=== PATIENT | female | born 1975 | race Caucasian/White ===

== ENCOUNTER 2016-09-24 09:52 | Observation (INO) | payer BC ==
[2016-09-24 10:55] LABS: CH 32.3; CHCM 34.9; HCT 45.3 % (34.0-46.0); HDW 2.51; HGB 15.4 gm/dL (11.4-16.0); MCH 31.7 pg (25.0-35.0); MCV 93.1 fL (80.0-100.0); RBC 4.86 m/uL (3.80-5.40); RDW 13.8 % (11.5-15.5); WBC 11.4 k/uL (3.8-10.6); WBC (Perox) 11.27
--- NOTE | 2016-09-24 10:57 | XR ---
EXAMINATION TYPE: XR KUB DATE OF EXAM: 09/24/2016 COMPARISON: NONE HISTORY: Pain TECHNIQUE: One view abdominal series FINDINGS: The osseous structures are intact. The bowel gas pattern is nonspecific. Lung bases are clear. Calc ifications in pelvis are likely vascular. Arthropathy of the hip joints. IMPRESSION: 1. Nonspecific abdomen.
[2016-09-24 11:04] LABS: ALT 24 U/L (9-52); AST 22 U/L (14-36); Alkaline Phosphatase 72 U/L (38-126); Amylase 41 U/L (30-110); Anion Gap 11 mmol/L; Blood Urea Nitrogen 10 mg/dL (7-17); Calcium 9.4 mg/dL (8.4-10.2); Carbon Dioxide 26 mmol/L (22-30); Chloride 106 mmol/L (98-107); Glucose 128 mg/dL (74-99); Non-African American GFR(MDRD) >60 (>60 ml/min/1.73 sqM); Potassium 4.4 mmol/L (3.5-5.1); Sodium 143 mmol/L (137-145); Total Bilirubin 0.5 mg/dL (0.2-1.3); Total Protein 7.4 g/dL (6.3-8.2)
[2016-09-24 11:32] LABS: Add Differential Manual Differential
[2016-09-24 11:35] LABS: Nucleated Red Blood Cells 0 /100 WBC (0-0); RBC Morphology Normal; Total Cells Counted 100
[2016-09-24 12:10] LABS: Appearance,Urine Cloudy (Clear); Bilirubin,Urine Negative (Negative); Glucose,Urine (UA) Negative (Negative); Ketones,Urine Negative (Negative); Leukocyte Esterase,Urine Small (Negative); Mucus,Urine Rare /hpf; Nitrite,Urine Negative (Negative); Particle Count 5071; Protein,Urine Negative (Negative); Specific Gravity,Urine 1.021 (1.001-1.035); Squamous Epithelial Cell,Urine 4 /hpf (0-4); UA Billing (MACRO vs. MICRO) MICRO; Urobilinogen,Urine <2.0 mg/dL (<2.0); WBC,Urine 9 /hpf (0-5)
--- NOTE | 2016-09-24 13:44 | ED ---
Abdominal Pain HPI - General Chief Complaint: Abdominal Pain Stated Complaint: ABNORMAL US RESULT Time Seen by Provider: 09/24/16 10:43 Source: patient, RN notes reviewed Mode of arrival: ambulatory Limitations: no limitations - History of Present Illness Initial Comments: This is a 41-year-old female with a benign past medical history who was sent in for evaluation for abdominal pain and a dilated common bile duct. Patient is having some intermittent upper abdominal pain and right upper quadrant pain recently she had laboratory her doctor's office is pending ultrasound done this one showed a dilated common bile duct. Patient was seen in pressure his office and sent here for evaluation and admission. No reports of fevers chills nausea vomiting sweats at this time. MD Complaint: abdominal pain - Related Data Home Medications Medication Instructions Recorded Confirmed Ranitidine HCl [Zantac] 150 mg PO HS 03/25/16 09/24/16 Spironolactone [Aldactone] 25 mg PO HS 03/25/16 09/24/16 metFORMIN HCL [Glucophage] 500 mg PO HS 03/25/16 09/24/16 Ginkgo Biloba 500 mg PO HS 09/24/16 09/24/16 Allergies Allergy/AdvReac Type Severity Reaction Status Date / Time Sulfa (Sulfonamide Allergy Rash/Hives Verified 09/24/16 10:03 Antibiotics) Review of Systems ROS Statement: Those systems with pertinent positive or pertinent negative responses have been documented in the HPI. ROS Other: All systems not noted in ROS Statement are negative. Past Medical History Past Medical History: Hypertension Additional Past Medical History / Comment(s): dysfunctional uterine bleeding History of Any Multi-Drug Resistant Organisms: None Reported Past Surgical History: Tubal Ligation Additional Past Surgical History / Comment(s): NASAL Past Anesthesia/Blood Transfusion Reactions: No Reported Reaction Past Psychological History: No Psychological Hx Reported Smoking Status: Never smoker Past Alcohol Use History: Occasional Past Drug Use History: None Reported - Past Family History Mother Family Medical History: Cancer, Congestive Heart Failure (CHF), Diabetes Mellitus, Hypertension Additional Family Medical History / Comment(s): OVARIAN CA Father Family Medical History: Cancer Additional Family Medical History / Comment(s): COLON CA Brother(s) Family Medical History: Neurologic Disorder Additional Family Medical History / Comment(s): ONE OF 5 BROTHERS HAS PARKINSON' S General Exam - General Exam Comments Initial Comments: This is a well-developed well-nourished awake alert oriented 3 female Limitations: no limitations General appearance: alert, in no apparent distress Head exam: Present: atraumatic, normocephalic, normal inspection Eye exam: Present: normal appearance, PERRL, EOMI. Absent: scleral icterus, conjunctival injection, periorbital swelling ENT exam: Present: normal exam, mucous membranes moist Neck exam: Present: normal inspection. Absent: tenderness, meningismus, lymphadenopathy Respiratory exam: Present: normal lung sounds bilaterally. Absent: respiratory distress, wheezes, rales, rhonchi, stridor Cardiovascular Exam: Present: regular rate, normal rhythm, normal heart sounds. Absent: systolic murmur, diastolic murmur, rubs, gallop, clicks GI/Abdominal exam: Present: soft, tenderness (For a mild tenderness palpation of the epigastrium some right upper quadrant tenderness no guarding or rebound) , normal bowel sounds. Absent: distended, guarding, rebound, rigid Extremities exam: Present: normal inspection, full ROM, normal capillary refill. Absent: tenderness, pedal edema, joint swelling, calf tenderness Back exam: Present: normal inspection Neurological exam: Present: alert, oriented X3, CN II-XII intact Psychiatric exam: Present: normal affect, normal mood Skin exam: Present: warm, dry, intact, normal color. Absent: rash Course Vital Signs 09/24/16 09/24/16 10:00 12:25 Temperature 98.2 F 97.9 F Pulse Rate 86 77 Respiratory 17 16 Rate Blood Pressure 188/97 142/75 O2 Sat by Pulse 99 97 Oximetry - Reevaluation(s) Reevaluation #1: 09/24/16 13:45 I did review the ultrasound from this morning he, bile duct is dilated measuring approximately 9 mm no definite stone Medical Decision Making - Medical Decision Making I did review the ultrasound imaging facial be admitted to medicine with consultation by GI and surgery. - Lab Data Result diagrams: 09/24/16 10:14 09/24/16 10:14 Lab Results 09/24/16 09/24/16 09/24/16 Range/Units 10:14 10:14 11:35 WBC 11.4 H (3.8-10.6) k/uL RBC 4.86 (3.80-5.40) m/uL Hgb 15.4 (11.4-16.0) gm/dL Hct 45.3 (34.0-46.0) % MCV 93.1 (80.0-100.0) fL MCH 31.7 (25.0-35.0) pg MCHC 34.0 (31.0-37.0) g/dL RDW 13.8 (11.5-15.5) % Plt Count 223 (150-450) k/uL Neutrophils % (Manual) 56.0 % Lymphocytes % (Manual) 32.0 % Monocytes % (Manual) 4.0 % Eosinophils % (Manual) 8.0 % Neutrophils # (Manual) 6.4 (1.3-7.7) k/uL Lymphocytes # (Manual) 3.6 (1.0-4.8) k/uL Monocytes # (Manual) 0.5 (0-1.0) k/uL Eosinophils # (Manual) 0.9 H (0-0.7) k/uL Nucleated RBCs 0 (0-0) /100 WBC RBC Morphology Normal Sodium 143 (137-145) mmol/L Potassium 4.4 (3.5-5.1) mmol/L Chloride 106 (98-107) mmol/L Carbon Dioxide 26 (22-30) mmol/L Anion Gap 11 mmol/L BUN 10 (7-17) mg/dL Creatinine 0.79 (0.52-1.04) mg/dL Est GFR (MDRD) Af Amer >60 (>60 ml/min/1.73 sqM) Est GFR (MDRD) Non-Af >60 (>60 ml/min/1.73 sqM) Glucose 128 H (74-99) mg/dL Calcium 9.4 (8.4-10.2) mg/dL Total Bilirubin 0.5 (0.2-1.3) mg/dL AST 22 (14-36) U/L ALT 24 (9-52) U/L Alkaline Phosphatase 72 (38-126) U/L Total Protein 7.4 (6.3-8.2) g/dL Albumin 4.3 (3.5-5.0) g/dL Amylase 41 (30-110) U/L Lipase 81 (23-300) U/L Urine Color Yellow Urine Appearance Cloudy H (Clear) Urine pH 6.0 (5.0-8.0) Ur Specific [place] 1.021 (1.001-1.035) Urine Protein Negative (Negative) Urine Glucose (UA) Negative (Negative) Urine Ketones Negative (Negative) Urine Blood Negative (Negative) Urine Nitrite Negative (Negative) Urine Bilirubin Negative (Negative) Urine Urobilinogen <2.0 (<2.0) mg/dL Ur Leukocyte Esterase Small H (Negative) Urine WBC 9 H (0-5) /hpf Ur Squamous Epith Cells 4 (0-4) /hpf Urine Mucus Rare H (None) /hpf Disposition Clinical Impression: Abdominal pain, Bile duct abnormality Disposition: ADMITTED IP TO THIS HOSP Condition: Stable Referrals: Musa Suarez MD [Primary Care Provider] - 1-2 days
[2016-09-24] MEDS ORDERED: ONDANSETRON 4 MG/2 ML VIAL IVP PRN (13:47)
[2016-09-24] MEDS ORDERED: HYDROmorphone 1 MG/ML 1 ML SYRINGE IV PRN (13:47)
[2016-09-24] MEDS ORDERED: NALOXONE 0.4 MG/ML 1 ML VIAL IV PRN (13:47)
[2016-09-24 14:55] VITALS: BMI 40.2
[2016-09-24] MEDS: SODIUM CHLORIDE 0.9% 1,000 ML IV SCH ×2 (15:20→22:20)
--- NOTE | 2016-09-24 19:11 | P.GSCN ---
History of Present Illness Consult date: 09/24/16 Reason for Consult: Common bile duct dilatation, right upper quadrant abdominal pain Requesting physician: Kushal Marie History of present illness: The patient is a 41-year-old female who reports in the last 2 nights getting up in the middle of night secondary to severe epigastric including right upper quadrant abdominal pain. She denies any radiation to the right back or shoulder. She denies a family history of gallbladder disease. She denies any blood in stools however she has developed diarrhea with this acute onset of events. She reports for the last 2 nights she had tuna fish salad followed by tacos last night, all of which contains fatty content and had precipitated episodes of her abdominal pain. She reports the pain has subsided however still present upon palpation. She had completed an ultrasound consistent with common bile duct dilatation however ultrasound was negative for gallstones. Secondary to her presentation, Gen. surgery' is consulted for further management. Review of Systems CONSTITUTIONAL: Denies any fever or chills. She has attempted weight loss at most between 3-5 pounds. HEENT: Denies any trouble with vision, hearing or nosebleeds. No difficulty swallowing. LYMPHATIC: The patient denies any lumps and bumps around the neck. ENDOCRINE: Denies any thyroid disorders. Has blood sugar glucose intolerance. RESPIRATORY: Denies pneumonia. Denies any troubles with breathing or dyspnea on exertion. CARDIOVASCULAR: Denies any chest pain, palpitations, or recent heart attacks. GASTROINTESTINAL: Has heart burn, constipation or bright red blood per rectum. Has diarrhea. GENITOURINARY: Denies any blood in urine or increased urinary frequency. MUSCULOSKELETAL: Denies any back pain, stiffness, joint arthritis. NEUROLOGIC: Denies any numbness or tingling along the distal extremities. No seizure disorders or headaches. PSYCHIATRIC: Denies depression or suidical ideation. HEMATOLOGIC: Denies any abnormal bleeding or bruising. BREASTS: Denies any breast lumps, pain or nipple discharge. Past Medical History Past Medical History: GERD/Reflux, Hypertension Additional Past Medical History / Comment(s): dysfunctional uterine bleeding. benign paroxysmal positional vertio. Polycystic Overy disease History of Any Multi-Drug Resistant Organisms: None Reported Past Surgical History: Tubal Ligation Additional Past Surgical History / Comment(s): NASAL surery 03/2016. Novasure 02/2015 Past Anesthesia/Blood Transfusion Reactions: No Reported Reaction Past Psychological History: No Psychological Hx Reported Smoking Status: Never smoker - Past Family History Mother Family Medical History: Cancer, Congestive Heart Failure (CHF), Diabetes Mellitus, Hypertension Additional Family Medical History / Comment(s): OVARIAN CA Father Family Medical History: Cancer Additional Family Medical History / Comment(s): COLON CA Brother(s) Family Medical History: Neurologic Disorder Additional Family Medical History / Comment(s): ONE OF 5 BROTHERS HAS PARKINSON' S Medications and Allergies Home Medications Medication Instructions Recorded Confirmed Type Ranitidine HCl [Zantac] 150 mg PO HS 03/25/16 09/24/16 History Spironolactone [Aldactone] 25 mg PO HS 03/25/16 09/24/16 History metFORMIN HCL [Glucophage] 500 mg PO HS 03/25/16 09/24/16 History Ginkgo Biloba 500 mg PO HS 09/24/16 09/24/16 History Allergies Allergy/AdvReac Type Severity Reaction Status Date / Time Sulfa (Sulfonamide Allergy Intermediate Rash/Hives Verified 09/24/16 15:07 Antibiotics) Surgical - Exam Vital Signs Temp Pulse Resp BP Pulse Ox 98.2 F 86 17 188/97 99 09/24/16 10:00 09/24/16 10:00 09/24/16 10:00 09/24/16 10:00 09/24/16 10:00 GENERAL: Well developed and in no acute distress. Pleasant. HEENT: No sclera icterus. Extraocular movements grossly intact. Moist buccal mucosa. Head is atraumatic, normocephalic. Hears conversational speech. No nasal drainage. NECK: Supple without lymphadenopathy. No JV distention. CHEST: Non-labored respirations and equal bilateral excursions. CARDIOVASCULAR: Regular rate and rhythm. Palpable 2+ radial pulses. ABDOMEN: Soft. Nondistended. Tenderness on the epigastrium and right upper quadrant without peritonitis. MUSCULOSKELETAL: No clubbing, cyanosis or edema. NEUROLOGIC: No focal or lateralizing signs. PSYCH: Appropriate affect. Alert and oriented to person, place and time. Results - Labs 09/24/16 10:14 09/24/16 10:14 Abnormal Lab Results - Last 24 Hours (Table) 06/15/17 06/15/17 06/15/17 Range/Units 10:14 10:14 11:35 WBC 11.4 H (3.8-10.6) k/uL Eosinophils # (Manual) 0.9 H (0-0.7) k/uL Glucose 128 H (74-99) mg/dL Urine Appearance Cloudy H (Clear) Ur Leukocyte Esterase Small H (Negative) Urine WBC 9 H (0-5) /hpf Urine Mucus Rare H (None) /hpf Diabetes panel 09/24/16 Range/Units 10:14 Sodium 143 (137-145) mmol/L Potassium 4.4 (3.5-5.1) mmol/L Chloride 106 (98-107) mmol/L Carbon Dioxide 26 (22-30) mmol/L BUN 10 (7-17) mg/dL Creatinine 0.79 (0.52-1.04) mg/dL Glucose 128 H (74-99) mg/dL Calcium 9.4 (8.4-10.2) mg/dL AST 22 (14-36) U/L ALT 24 (9-52) U/L Alkaline Phosphatase 72 (38-126) U/L Total Protein 7.4 (6.3-8.2) g/dL Albumin 4.3 (3.5-5.0) g/dL Calcium panel 09/24/16 Range/Units 10:14 Calcium 9.4 (8.4-10.2) mg/dL Albumin 4.3 (3.5-5.0) g/dL Pituitary panel 09/24/16 Range/Units 10:14 Sodium 143 (137-145) mmol/L Potassium 4.4 (3.5-5.1) mmol/L Chloride 106 (98-107) mmol/L Carbon Dioxide 26 (22-30) mmol/L BUN 10 (7-17) mg/dL Creatinine 0.79 (0.52-1.04) mg/dL Glucose 128 H (74-99) mg/dL Calcium 9.4 (8.4-10.2) mg/dL Adrenal panel 09/24/16 Range/Units 10:14 Sodium 143 (137-145) mmol/L Potassium 4.4 (3.5-5.1) mmol/L Chloride 106 (98-107) mmol/L Carbon Dioxide 26 (22-30) mmol/L BUN 10 (7-17) mg/dL Creatinine 0.79 (0.52-1.04) mg/dL Glucose 128 H (74-99) mg/dL Calcium 9.4 (8.4-10.2) mg/dL Total Bilirubin 0.5 (0.2-1.3) mg/dL AST 22 (14-36) U/L ALT 24 (9-52) U/L Alkaline Phosphatase 72 (38-126) U/L Total Protein 7.4 (6.3-8.2) g/dL Albumin 4.3 (3.5-5.0) g/dL - Imaging US - abdomen: image reviewed (The images were personally reviewed by me without hyper echoic stones in the gallbladder. Common bile duct is dilated. Gallbladder wall within normal limits.) Assessment and Plan (1) Epigastric abdominal pain Status: Acute (2) Right upper quadrant pain Status: Acute (3) Common bile duct dilation Status: Acute (4) Leukocytosis Status: Acute (5) Fatty food intolerance Status: Acute (6) Acid reflux Status: Acute (7) Morbid obesity with BMI of 40.0-44.9, adult Status: Acute Plan: 1. Although no lucent stones could be identified in the gallbladder on her ultrasound, this does not completely exclude that she doesn't have any which may have caused her dilated common bile duct. 2. Agree with benefits of MRCP versus ERCP. However, a HIDA scan may also demonstrate cholecystitis. 3. Agree with GI workup in the interim. General surgery intervention may include a cholecystectomy should the gallbladder be the cause of her symptoms. At this time, we'll defer decision of MRCP versus ERCP with the GI group. 4. Recommend repeat CBC and chemistries. 5. She may start trial of diet pending completion of a HIDA scan. Thank you very much for this kind consultation.
[2016-09-24] MEDS: PANTOPRAZOLE 40 MG/10 ML VIAL IV SCH (21:11)
[2016-09-25] MEDS: SODIUM CHLORIDE 0.9% 1,000 ML IV SCH ×3 (06:01→20:52)
[2016-09-25 06:49] LABS: CHCM 34.6; HCT 41.2 % (34.0-46.0); HDW 2.57; HGB 13.8 gm/dL (11.4-16.0); MCH 31.2 pg (25.0-35.0); MCHC 33.5 g/dL (31.0-37.0); MCV 93.1 fL (80.0-100.0); Mean Platelet Volume 7.6; RBC 4.42 m/uL (3.80-5.40); RDW 13.8 % (11.5-15.5); WBC 8.6 k/uL (3.8-10.6); WBC (Perox) 9.07
[2016-09-25 07:09] LABS: ALT 26 U/L (9-52); AST 18 U/L (14-36); Alkaline Phosphatase 64 U/L (38-126); Anion Gap 8 mmol/L; Blood Urea Nitrogen 8 mg/dL (7-17); Calcium 8.4 mg/dL (8.4-10.2); Carbon Dioxide 24 mmol/L (22-30); Chloride 111 mmol/L (98-107); Glucose 86 mg/dL (74-99); Non-African American GFR(MDRD) >60 (>60 ml/min/1.73 sqM); Potassium 4.2 mmol/L (3.5-5.1); Sodium 143 mmol/L (137-145); Total Bilirubin 0.7 mg/dL (0.2-1.3); Total Protein 5.9 g/dL (6.3-8.2)
[2016-09-25 08:01] LABS: Add Differential Manual Differential
[2016-09-25 08:10] LABS: Nucleated Red Blood Cells 0 /100 WBC (0-0); Total Cells Counted 100
[2016-09-25 08:12] LABS: Manual Review Performed
[2016-09-25] MEDS: PANTOPRAZOLE 40 MG/10 ML VIAL IV SCH ×2 (08:22→20:53)
--- NOTE | 2016-09-25 11:33 | NM ---
EXAMINATION TYPE: NM hepatobiliary w EF DATE OF EXAM: 09/25/2016 COMPARISON: NONE INDICATION: Cholecystitis TECHNIQUE: After the intravenous administration of 5.5 mCi Tc 99m Mebrofenin hepatobiliary scintigrap hy is performed. Images were obtained immediately post injection. FINDINGS: There is prompt uptake and excretion of radiotracer by the liver. Extrahepatic ducts are identified at 16 minutes. The gallbladder is visualized within 22 minutes. At one hour 8 ounces of oral ensure plus is given to mimic CCK and gallbladder ejection fraction is c alculated at 72 %, which is in the normal range. (Normal >35% and <80%.). IMPRESSION: 1. Normal hepatobiliary scan
--- NOTE | 2016-09-25 12:33 | P.CONS ---
History of Present Illness - Reason for Consult Consult date: 09/25/16 Dilated common bile duct Requesting physician: Kushal Marie - History of Present Illness 41-year-old female patient Dr. Suarez admitted with severe epigastric pain right upper quadrant 3 days exacerbated with food. Denies fever, chills, hematemesis, hematochezia, or melena. No weight loss. No history of PUD. Abdominal ultrasound reported CBD 0.9 cm without stone. No focal liver lesions. White count 8.6-11.4. Platelet 176. Liver enzymes total bilirubin normal. Lipase 81. HIDA scan pending. Review of Systems Constitutional: Denies fever, chills, sweats, weight gain, or loss. HEENT: Negative for migraines, blurred vision or loss, earaches, drainage, tinnitus, oral mucosal lesions, dysphagia, or odynophagia. CARDIAC: Hypertension. Negative for chest pain, arrhythmias, or palpitation. RESPIRATORY: Negative for shortness of breath, hemoptysis, cough, or sputum production. GI: See HPI for pertinent findings. : Negative for hematuria, urgency, frequency, polyuria, or dysuria. GYNc: Dysfunctional uterine bleeding. Polycystic ovarian disease. Tubal ligation. Denies possibility of . Negative vaginal discharge. MUSCULOSKELETAL: Negative for muscle aches, swelling, arthritis, and arthralgias. NEUROLOGIC: Negative for stroke or TIA. ENDOCRINE: Negative for thyroid problems. SKIN: Negative for rash or itching. PSYCHIATRIC: Negative history for depression and anxiety All systems: negative (See HPI) Past Medical History Past Medical History: GERD/Reflux, Hypertension Additional Past Medical History / Comment(s): dysfunctional uterine bleeding. benign paroxysmal positional vertio. Polycystic Overy disease History of Any Multi-Drug Resistant Organisms: None Reported Past Surgical History: Tubal Ligation Additional Past Surgical History / Comment(s): NASAL surery 03/2016. Novasure 02/2015 Past Anesthesia/Blood Transfusion Reactions: No Reported Reaction Past Psychological History: No Psychological Hx Reported Smoking Status: Never smoker - Past Family History Mother Family Medical History: Cancer, Congestive Heart Failure (CHF), Diabetes Mellitus, Hypertension Additional Family Medical History / Comment(s): OVARIAN CA Father Family Medical History: Cancer Additional Family Medical History / Comment(s): COLON CA Brother(s) Family Medical History: Neurologic Disorder Additional Family Medical History / Comment(s): ONE OF 5 BROTHERS HAS PARKINSON' S Medications and Allergies Home Medications Medication Instructions Recorded Confirmed Type Ranitidine HCl [Zantac] 150 mg PO HS 03/25/16 09/24/16 History Spironolactone [Aldactone] 25 mg PO HS 03/25/16 09/24/16 History metFORMIN HCL [Glucophage] 500 mg PO HS 03/25/16 09/24/16 History Ginkgo Biloba 500 mg PO HS 09/24/16 09/24/16 History Allergies Allergy/AdvReac Type Severity Reaction Status Date / Time Sulfa (Sulfonamide Allergy Intermediate Rash/Hives Verified 09/24/16 15:07 Antibiotics) Physical Exam Vitals: Vital Signs Temp Pulse Pulse Pulse Resp BP BP 09/25/16 04:10 97.1 F L 67 16 119/71 09/24/16 21:13 97.7 F 71 18 108/71 09/24/16 16:45 98.2 F 77 16 123/78 09/24/16 14:45 97.7 F 73 16 134/87 09/24/16 14:16 98.2 F 87 16 135/83 09/24/16 14:10 98.2 F 87 16 135/83 09/24/16 12:25 97.9 F 77 16 142/75 09/24/16 10:00 98.2 F 86 17 188/97 Pulse Ox 09/25/16 04:10 98 09/24/16 21:13 97 09/24/16 16:45 97 09/24/16 14:45 99 09/24/16 14:16 96 09/24/16 14:10 96 09/24/16 12:25 97 09/24/16 10:00 99 Intake and Output 09/24/16 09/25/16 09/25/16 22:59 06:59 14:59 Output Total 100 Balance -100 Output: Urine 100 Other: # Voids 1 1 General appearance: The patient is alert, oriented, in no acute distress. HET: Head is normocephalic and atraumatic. Pupils are equal and reactive. Oropharynx is clear without lesions. Neck: Supple without lymphadenopathy. Trachea midline. Heart: S1 S2. Regular rate and rhythm. Lungs: No crackles or wheezes are heard. Abdomen: Soft, very mild epigastric tenderness, nondistended with bowel sounds. No peritoneal signs. No palpable organomegaly or masses. Extremities: Normal skin color and turgor. No cyanosis, rash, ulceration, clubbing, or edema. Radial and pedal pulses are 2/4 bilaterally. Neurological: No focal deficits. Strength and sensation are grossly intact. Results CBC & Chem 7: 09/25/16 06:38 09/25/16 06:38 Labs: Abnormal Lab Results - Last 24 Hours (Table) 09/24/16 09/24/16 09/24/16 Range/Units 10:14 10:14 11:35 WBC 11.4 H (3.8-10.6) k/uL Eosinophils # (Manual) 0.9 H (0-0.7) k/uL Chloride (98-107) mmol/L Glucose 128 H (74-99) mg/dL Total Protein (6.3-8.2) g/dL Albumin (3.5-5.0) g/dL Urine Appearance Cloudy H (Clear) Ur Leukocyte Esterase Small H (Negative) Urine WBC 9 H (0-5) /hpf Urine Mucus Rare H (None) /hpf 09/25/16 09/25/16 Range/Units 06:38 06:38 WBC (3.8-10.6) k/uL Eosinophils # (Manual) 2.1 H (0-0.7) k/uL Chloride 111 H (98-107) mmol/L Glucose (74-99) mg/dL Total Protein 5.9 L (6.3-8.2) g/dL Albumin 3.3 L (3.5-5.0) g/dL Urine Appearance (Clear) Ur Leukocyte Esterase (Negative) Urine WBC (0-5) /hpf Urine Mucus (None) /hpf US - abdomen: report reviewed (Dr. Dominguez) Assessment and Plan (1) Common bile duct dilation Narrative/Plan: Mildly dilated less than 1 cm; etiology unclear imaging studies reported no evidence of obvious calculus Status: Acute (2) Epigastric abdominal pain Status: Acute (3) Morbid obesity with BMI of 40.0-44.9, adult Status: Acute Plan: 1. ERCP is not recommended considering liver enzymes total bilirubin within normal limits; ERCP is not diagnostic for evaluation of dilated common bile duct in this setting. HIDA scan pending. Consideration for MRCP to further evaluate dilated common bile duct however probability of choledocholithiasis is low considering normal biochemical liver profile and lack of intrahepatic biliary dilatation on ultrasound. Consideration for EGD evaulation of epigastric pain pending HIDA results. 2. General surgery following. Thank you for this kind referral and the opportunity to participate in the care of your patient. This consultation was discussed with Dr. Dominguez. The impression and plan of care have been directed as dictated.
--- NOTE | 2016-09-25 12:40 | P.PN ---
Subjective 41-year-old female being seen with the surgical attending patient just returned from having a HIDA scan. Dr. Rubi did review the HIDA scan results with the patient and the patient's spouse questions were answered the HIDA scan was a normal study. Patient continues to report if she eats it results in epigastric pain. Patient points to the midsternal area as to the reference point. Additionally patient states that she's been having frequent stools. States she has no appetite Objective - Vital Signs Vital signs: Vital Signs Temp 97.8 F 09/25/16 08:00 Pulse 72 09/25/16 08:00 Resp 16 09/25/16 08:00 BP 123/76 09/25/16 08:00 Pulse Ox 98 09/25/16 08:00 Intake & Output 09/24/16 09/25/16 09/25/16 18:59 06:59 18:59 Output Total 100 Balance -100 Weight 99.79 kg Output: Urine 100 Other: # Voids 1 1 - Exam Physical exam 41-year-old female seen and evaluated resting in bed continues to report having epigastric pain with eating Lungs essentially clear adequate air movement Heart S1-S2 audible regular abdomen soft not able to elicit any facial grimacing with palpitation to the abdominal wall bowel tones present nontender patient reports having frequent stools Extremities no edema - Labs CBC & Chem 7: 09/25/16 06:38 09/25/16 06:38 Labs: Abnormal Lab Results - Last 24 Hours (Table) 09/25/16 09/25/16 Range/Units 06:38 06:38 Eosinophils # (Manual) 2.1 H (0-0.7) k/uL Chloride 111 H (98-107) mmol/L Total Protein 5.9 L (6.3-8.2) g/dL Albumin 3.3 L (3.5-5.0) g/dL Assessment and Plan Plan: Impression Present on admission right upper quadrant abdominal pain Severe epigastric pain with eating unclear etiology Present on admission right upper abdominal pain ultrasound consistent with common bile duct dilatation however ultrasound was negative for gallstones HIDA scan studies negative Episodes of frequent stooling no blood noted Morbid Obesity BMI 40 Common bile duct dilatation Fatty food intolerance Acid reflux Plan No surgical intervention indicated at this time Defer to GI service for further workup may benefit from an EGD Continue with current recommendations by medicine service defer to Send stool for C. diff low probability Defer decision of an MRCP versus ERCP versus EGD per GI service Follow with you The above dictated assessment and findings were discussed with dr Rubi Impression and the plan of care have been dictated as directed. Osiris Ramos nurse practitioner acting as a scribe for Dr. Rubi
[2016-09-25] MEDS: ENOXAPARIN 40 MG/0.4 ML SYRINGE SQ SCH (13:47)
--- NOTE | 2016-09-25 14:37 | HP ---
DATE OF ADMISSION: 09/24/2016 PRESENTING COMPLAINT: Abdominal pain. HISTORY OF PRESENTING COMPLAINT: This is a very pleasant 41-year-old patient of Dr. Suarez, whose chronic stable medical conditions include GERD, hyperlipidemia, hypertension, polycystic ovarian syndrome, vertigo. Patient ( ) in the evening, started with upset stomach and had multiple loose stools. Next day, did not feel well and go to work. Following that, she actually felt better and then again did not feel well. Came down to the ER, had an ultrasound, that showed some dilated common bile duct. Went home. ( ) still having increasing abdominal pain, mostly in the upper abdomen, nausea present, no vomiting. Heparin has been down, decided to come in. The ultrasound did show dilated common bile duct. No obvious stones were recorded. Denied any fever. REVIEW OF SYSTEMS: CONSTITUTIONAL: Tired. HEENT: None. RESPIRATORY: None. CARDIOVASCULAR: None. GASTROINTESTINAL: As above. GENITOURINARY: None. MUSCULOSKELETAL: None. DERMATOLOGICAL : None. HEMATOLOGICAL: None. LYMPHATICS: None. PSYCHIATRY: None. NEUROLOICAL: None. Past history of GERD, hypertension, polycystic ovarian syndrome. PAST SURGICAL HISTORY: Tubal ligation, nasal surgery, NovaSure treatment. SOCIAL HISTORY: Patient does not smoke, alcohol occasionally, . 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 FAMILY HISTORY: Ovarian cancer, hypertension, diabetes, congestive heart failure. On examination, temperature 97.8, pulse 72, respirations 16, blood pressure 123/76, pulse ox 98% on room air. GENERAL APPEARANCE: Well built, BMI of 40.2. Sitting up, not in distress. EYES: Pupils equal. Conjunctivae normal. HEENT: Oral cavity normal. NECK: JVD is not raised. Mass not palpable. RESPIRATORY: Effort normal. Lungs are Clear. CARDIOVASCULAR: First and second sounds normal. No edema. ABDOMEN: Right upper quadrant tenderness. No guarding or rigidity. Liver and spleen not palpable. LYMPHATIC: No lymph node palpable in neck or axillae.. PSYCHIATRY: Alert and oriented x3. Mood and affect normal. NEUROLOGICAL: Pupils equal. Cranial nerves grossly intact. Power and sensation intact. INVESTIGATIONS: White count 11.4, hemoglobin 15.4. Potassium 4.4, LFTs and bilirubin are normal. Patient's abdominal ultrasound on 09/24/2016 showed the common bile duct to be dilated. ASSESSMENT: 1. This is a patient who presented with 5 days off upper abdominal pain with tenderness in the right upper quadrant, from nausea. No fever. Dilated common bile duct, suspect patient may have a stone, and may have a low-grade cholecystitis. At this moment, HIDA scan is being done. Patient also some tenderness on the right the abdomen, may have low-grade colitis. 2. Gastroesophageal reflux disease. 3. Essential hypertension. 4. Polycystic ovarian syndrome. 5. Morbid obesity, body mass index of 40.2. PLAN: Patient is on a clear liquid diet. HIDA scan has been ordered. Also consultation through General Surgery and GI was made. Patient may potentially need an ERCP. Care was discussed with the patient and at the bedside. Getting IV fluids. ( ).
[2016-09-25] MEDS ORDERED: FAMOTIDINE 20 MG TAB PO SCH (21:00)
[2016-09-25] MEDS ORDERED: SPIRONOLACTONE 25 MG TAB PO SCH (21:00)
[2016-09-26] MEDS: SODIUM CHLORIDE 0.9% 1,000 ML IV SCH (03:36)
[2016-09-26] MEDS: PANTOPRAZOLE 40 MG/10 ML VIAL IV SCH (08:23)
[2016-09-26] MEDS ORDERED: LACTATED RINGERS 1,000 ML IV ONE (08:38)
[2016-09-26] MEDS ORDERED: PROPOFOL 10 MG/ML 20 ML VIAL IV ONE (08:50)
[2016-09-26] MEDS: ENOXAPARIN 40 MG/0.4 ML SYRINGE SQ SCH (09:34)
--- NOTE | 2016-09-26 09:34 | P.PCN ---
Date of Procedure: 09/26/16 Preoperative Diagnosis: Postoperative Diagnosis: Procedure(s) Performed: Procedure: Esophagogastroduodenoscopy and biopsy. Preoperative diagnosis: Unexplained epigastric pain, history of chronic reflux. Postoperative diagnosis: 1. Small sliding hiatal hernia with no obvious esophagitis or complicated reflux disease. 2. Mild gastritis and duodenitis with no ulcers or gastric outlet obstruction. Preparation sedation: Was provided by anesthesia. Brief clinical history: The patient is a 41-year-old female admitted with severe epigastric and right upper quadrant pain of 3-day duration. Pain exacerbated with food. Denies fever, chills, hematemesis, hematochezia, or melena. No weight loss. No history of PUD. Abdominal ultrasound reported CBD 0.9 cm without stone. No focal liver lesions. White count 8.6-11.4. Platelet 176. Liver enzymes including total bilirubin normal. Lipase 81. HIDA scan normal. The details are summarized in the history and physical and dictated consultation. This evaluation is to rule out peptic ulcer disease or other pathology. Procedure: With the patient on her left lateral decubitus position and after informed consent and adequate sedation, I passed the Olympus-GIF 160 video upper endoscope through the cricopharyngeus down the esophagus. GE junction was around 34 cm from the incisors and there was a small sliding hiatal hernia but no obvious esophagitis or complicated reflux disease. The endoscope was then passed into the stomach which was insufflated with air and inspected in detail including the retroflex view in the cardia. There was some mottling and erythema in the antrum but no ulcers or erosions. Pyloric channel did not show any ulcers. Duodenal bulb and post bulbar area showed erythema and submucosal hemorrhage but no ulcers or bleeding. Descending duodenum appeared within normal limits. I obtained multiple biopsies from the duodenum, antrum and esophagus then the endoscope was withdrawn. The patient tolerated the procedure well. Plan: The patient was reassured. Will await biopsy results. Consideration would be made for further investigation depending on her course. With her family history of colon cancer, I discussed consideration of colonoscopy in the near future especially if she continues to have GI issues. I will discuss with you and follow with you with interest. Implants: Indications for Procedure: Operative Findings: Description of Procedure:
[2016-09-26 12:34] VITALS: BP 123/82; PULSE 69; RESP 19; TEMP 97
--- NOTE | 2016-09-26 15:36 | P.PN ---
Subjective Principal diagnosis: Epigastric including right upper quadrant abdominal pain. The patient is a 41-year-old female who complained of epigastric abdominal pain. She also had an incidental finding of a dilated CBD. Management was deferred to GI team whereby she had an EGD consistent with duodenitis and gastritis. Her abdominal pains completely resolved. She also completed a HIDA scan which is negative for acute cholecystitis. Objective - Vital Signs Vital signs: Vital Signs Temp 97.0 F L 09/26/16 12:33 Pulse 69 09/26/16 12:33 Resp 19 09/26/16 12:33 BP 123/82 09/26/16 12:33 Pulse Ox 96 09/26/16 12:33 Intake & Output 09/25/16 09/26/16 09/26/16 18:59 06:59 18:59 Intake Total 300 360 200 Output Total 100 Balance 200 360 200 Intake: IV 200 Oral 300 360 Output: Urine 100 Other: # Voids 2 1 1 # Bowel Movements 3 0 - Exam GENERAL: Well developed and in no acute distress. Pleasant. HEENT: No sclera icterus. Extraocular movements grossly intact. Moist buccal mucosa. Head is atraumatic, normocephalic. Hears conversational speech. No nasal drainage. NECK: Supple without lymphadenopathy. No JV distention. CHEST: Non-labored respirations and equal bilateral excursions. CARDIOVASCULAR: Regular rate and rhythm. Palpable 2+ radial pulses. ABDOMEN: Soft, nontender. Nondistended. MUSCULOSKELETAL: No clubbing, cyanosis or edema. NEUROLOGIC: No focal or lateralizing signs. PSYCH: Appropriate affect. Alert and oriented to person, place and time. - Labs CBC & Chem 7: 09/25/16 06:38 09/25/16 06:38 Assessment and Plan (1) Epigastric abdominal pain Status: Acute (2) Right upper quadrant pain Status: Acute (3) Common bile duct dilation Status: Acute (4) Leukocytosis Status: Acute (5) Fatty food intolerance Status: Acute (6) Acid reflux Status: Acute (7) Morbid obesity with BMI of 40.0-44.9, adult Status: Acute (8) Duodenitis Status: Acute (9) Gastritis Status: Acute Plan: 1. No acute general surgical intervention needed at this time. 2. Recommend proton pump inhibitor such as omeprazole for gastritis including duodenitis. 3. Patient to follow up as outpatient in the office. 4. She is cleared from a surgical standpoint for discharge.
--- NOTE | 2016-09-28 21:55 | DS ---
DATE OF ADMISSION: 09/24/2016 DATE OF DISCHARGE: 09/26/2016 FINAL DIAGNOSES: 1. Possible acute gastroenteritis. 2. Gastroesophageal reflux disease. 3. Essential hypertension. 4. Polycystic ovarian syndrome. 5. Morbid obesity; body mass index of 40.2. HOSPITAL COURSE: This patient presented with upset stomach, multiple loose stools, some nausea. KUB was unremarkable. Patient's HIDA scan was normal. Patient's symptoms greatly improved. Possibly underlying gastroenteritis was present. Patient did have an EGD by Dr. Dominguez that was primarily normal except for mild gastritis. CONSULTATIONS: 1. Dr. Dominguez from GI with EGD. 2. Dr. Rubi from General Surgery. DISCHARGE MEDICATIONS: 1. Zantac 150 mg p.o. at bedtime. 2. Aldactone 25 mg at bedtime. 3. Glucophage 500 mg p.o. at bedtime. 4. Gingko biloba 500 mg p.o. at bedtime. Follow up with Dr. Dominguez in 2 weeks. Follow up with Dr. Suarez in 1 to 2 days. Follow up with Dr. Rubi on 09/29/16. On exam, lungs are clear. Abdomen soft, non-tender.
== END 2016-09-26 16:10 | disposition home or self-care (01) ==
LOC: EC 09:52 → 6PED 13:47
PROVIDERS: ADMIT Hospitalist; ATTEND Hospitalist
DX: K21.9 Gastro-esophageal reflux disease without esophagitis (principal); I10 Essential (primary) hypertension; E28.2 Polycystic ovarian syndrome; E66.01 Morbid (severe) obesity due to excess calories; K83.8 Other specified diseases of biliary tract; K29.50 Unspecified chronic gastritis without bleeding; K20.9 Esophagitis, unspecified; K44.9 Diaphragmatic hernia without obstruction or gangrene; K29.80 Duodenitis without bleeding; Z79.899 Other long term (current) drug therapy; Z68.41 Body mass index [BMI] 40.0-44.9, adult; Z79.84 Long term (current) use of oral hypoglycemic drugs; Z88.2 Allergy status to sulfonamides; Z83.3 Family history of diabetes mellitus; Z82.49 Family history of ischemic heart disease and other diseases of the circulatory system; Z80.0 Family history of malignant neoplasm of digestive organs; Z80.41 Family history of malignant neoplasm of ovary
CPT/HCPCS: 96361 ×2; 96372 ×2; 96374; 96375; 96376 ×2; 99285; 36415; 88305; 80053 ×2; 82150; 83690; 85025 ×2; 81001; 88342; 81025; 87324; 74000; 78226; 43239; G0378 ×3; A9537; J1650 ×2; J1170; J2704; C9113 ×3

== ENCOUNTER → 2016-09-24 | Outpatient (CLI) | payer BC ==
--- NOTE | 2016-09-24 08:28 | US ---
EXAMINATION TYPE: US abdomen complete DATE OF EXAM: 09/24/2016 COMPARISON: NONE CLINICAL HISTORY: R10.9 Abdominal pain. Pt states ABD pain and diarrhea x 1 week EXAM MEASUREMENTS: Liver Length: 14.3 cm Gallbladder Wall: 0.2 cm CBD: 0.9 cm Spleen: 11.5 cm Right Kidney: 13.8 x 4.1 x 4.6 cm Left Kidney: 12.6 x 5.7 x 4.4 cm Large pt body habitus Pancreas: wnl, tail obscured by bowel gas Liver: wnl Gallbladder: wnl Evidence for sonographic Espinoza's sign: No CBD: Dilated Spleen: wnl Right Kidney: wnl, lower pole gassed out Left Kidney: wnl Upper IVC: wnl Abd Aorta: wnl CBD dilated, unable to determine cause Results called to Edel at 's office at time of exam IMPRESSION: 1. Common bile duct is dilated measuring 9 mm. No obvious stones. Correlate with MRCP or ERCP as clin ically warranted.
== END | disposition home or self-care (01) ==
LOC: RADUSWWP 07:30
PROVIDERS: ATTEND Family Medicine
DX: K83.8 Other specified diseases of biliary tract (principal); R10.9 Unspecified abdominal pain
CPT/HCPCS: 76700

== ENCOUNTER → 2017-04-21 | Outpatient (CLI) | payer OTHER ==
--- NOTE | 2017-04-21 13:32 | US ---
EXAMINATION TYPE: US transvaginal DATE OF EXAM: 04/21/2017 COMPARISON: US CLINICAL HISTORY: E28.2 Polycystic Ovaries. PCOS, ablation in 2014 TECHNIQUE: Transvaginal (TV) Date of LMP: 04/19/2017 EXAM MEASUREMENTS: Uterus: 7.9 x 4.4 x 4.1 cm Endometrial Stripe: 0.3 cm Left Ovary: 3.2 x 2.0 x 2.1 cm 1. Uterus: Anteverted 2. Endometrium: Small amount of fluid within canal with hyperechoic area= 1.1 x 0.4 x 0.8 cm/ previo us ablation in 2014 3. Right Ovary: Obscured by overlying bowel gas 4. Left Ovary: wnl 5. Bilateral Adnexa: Within right adnexa shows an anechoic tubular structure 6. Posterior cul-de-sac: wnl IMPRESSION: 1. Hyperechoic area within the uterine endometrium could reflect a degree with fluid. Polyp is diffic ult to exclude. 2. Right-sided hydrosalpinx difficult to exclude.
== END | disposition home or self-care (01) ==
LOC: RADUSWWP 12:42
PROVIDERS: ATTEND Family Medicine
DX: E28.2 Polycystic ovarian syndrome (principal)
CPT/HCPCS: 76830

== ENCOUNTER → 2017-06-07 | Outpatient (CLI) | payer OTHER ==
[2017-06-07 16:56] LABS: Basophils % (A) 0 %; Eosinophils # (A) 0.1 k/uL (0-0.7); Eosinophils % (A) 1 %; HCT 42.1 % (34.0-46.0); Lymphocytes # (A) 2.8 k/uL (1.0-4.8); Lymphocytes % (A) 28 %; MCH 30.6 pg (25.0-35.0); MCHC 33.3 g/dL (31.0-37.0); Mean Platelet Volume 7.6; Monocytes # (A) 0.4 k/uL (0-1.0); Monocytes % (A) 4 %; Neutrophils # (A) 6.7 k/uL (1.3-7.7); Neutrophils % (A) 66 %; Platelet Count 201 k/uL (150-450); RBC 4.57 m/uL (3.80-5.40); RDW 12.3 % (11.5-15.5); WBC 10.1 k/uL (3.8-10.6)
== END | disposition home or self-care (01) ==
LOC: LABWHC1 16:32
PROVIDERS: ATTEND Obstetrics & Gynecology
DX: Z01.812 Encounter for preprocedural laboratory examination (principal)
CPT/HCPCS: 36415; 85025

== ENCOUNTER → 2017-06-09 | Outpatient (CLI) | payer OTHER | END | disposition home or self-care (01) | LOC: LABPAT 08:53 | PROVIDERS: ATTEND Obstetrics & Gynecology | DX: Z01.810 Encounter for preprocedural cardiovascular examination (principal) | CPT/HCPCS: 93005 ==

== ENCOUNTER 2017-06-10 06:46 | Day surgery (SDC) | payer OTHER ==
[2017-06-08 16:01] VITALS: BMI 42.0
--- NOTE | 2017-06-09 17:49 | P.HPOB ---
History of Present Illness H&P Date: 06/09/17 Chief Complaint: pelvic pain 41-year-old presents for laparoscopic right salpingectomy. She's been having right lower quadrant pain last few months and has found to have a right hydrosalpinx by ultrasound. Review of Systems All systems: negative Constitutional: Denies chills, Denies fever Eyes: denies blurred vision, denies pain Ears, nose, mouth and throat: Denies headache, Denies sore throat Cardiovascular: Denies chest pain, Denies shortness of breath Respiratory: Denies cough Gastrointestinal: Denies abdominal pain, Denies diarrhea, Denies nausea, Denies vomiting Genitourinary: Denies dysuria, Denies hematuria Musculoskeletal: Denies myalgias Integumentary: Denies pruritus, Denies rash Neurological: Denies numbness, Denies weakness Psychiatric: Denies anxiety, Denies depression Endocrine: Denies fatigue, Denies weight change Past Medical History Past Medical History: Diabetes Mellitus, GERD/Reflux, Hypertension Additional Past Medical History / Comment(s): PCOS. benign paroxysmal positional vertgio History of Any Multi-Drug Resistant Organisms: None Reported Past Surgical History: Tubal Ligation, Uterine Ablation Additional Past Surgical History / Comment(s): NASAL surgery Past Anesthesia/Blood Transfusion Reactions: No Reported Reaction Smoking Status: Never smoker - Past Family History Mother Family Medical History: Cancer, Congestive Heart Failure (CHF), Diabetes Mellitus, Hypertension Additional Family Medical History / Comment(s): OVARIAN CA Father Family Medical History: Cancer Additional Family Medical History / Comment(s): COLON CA Brother(s) Family Medical History: Neurologic Disorder Additional Family Medical History / Comment(s): ONE OF 5 BROTHERS HAS PARKINSON' S Medications and Allergies Home Medications Medication Instructions Recorded Confirmed Type Ranitidine HCl [Zantac] 150 mg PO HS 03/25/16 06/08/17 History Spironolactone [Aldactone] 25 mg PO HS 03/25/16 06/08/17 History metFORMIN HCL [Glucophage] 1,000 mg PO BID 03/25/16 06/08/17 History Omeprazole 40 mg PO AC-[id number] 06/08/17 06/08/17 History Allergies Allergy/AdvReac Type Severity Reaction Status Date / Time Sulfa (Sulfonamide Allergy Intermediate Rash/Hives Verified 06/08/17 15:53 Antibiotics) Exam Osteopathic Statement: *. No significant issues noted on an osteopathic structural exam other than those noted in the History and Physical/Consult. Heart: Regular rate and rhythm Lungs: Clear to auscultation bilaterally Abdomen: Soft, nontender Extremities: Negative Homans sign Assessment and Plan (1) Hydrosalpinx Status: Acute Code(s): N70.11 - CHRONIC SALPINGITIS SNOMED Code(s): 92820625 Plan: 1. Laparoscopic salpingectomy on the right
[~2017-06-10 06:46] MED LIST: LACTATED RINGERS 1,000 ML IV SCH; MORPHINE SULFATE 4 MG/ML SYRINGE IV PRN; Pre Op ABX Message 1 EACH MISC MISCELLANE ONE; SCOPOLAMINE 1.5MG/72HR PATCH TRANSDERM ONE; fentaNYL (PF) 50 MCG/ML 2 ML AMP IV PRN
[2017-06-10 07:45] LABS: Glucose,Whole Blood 94 mg/dL (75-99)
[2017-06-10] MEDS ORDERED: LIDOCAINE 1% 20 ML VIAL (10MG/ML) FOR IV START INTRADERMA ONE (07:46)
[2017-06-10] MEDS ORDERED: ONDANSETRON 4 MG/2 ML VIAL IVP ONE (07:47)
[2017-06-10] MEDS ORDERED: FAMOTIDINE 20 MG/2 ML VIAL IV ONE (07:48)
[2017-06-10] MEDS ORDERED: DEXAMETHASONE SOD PHOSPHATE 10 MG/ML 1 ML VIAL IV ONE (07:48)
[2017-06-10] MEDS ORDERED: SCOPOLAMINE 1.5MG/72HR PATCH TRANSDERM ONE (07:49)
[2017-06-10] MEDS ORDERED: NEOSTIGMINE 1 MG/ML 10 ML VIAL ONE (08:23)
[2017-06-10] MEDS ORDERED: MIDAZOLAM 2 MG/2 ML VIAL ONE (08:23)
[2017-06-10] MEDS ORDERED: LIDOCAINE 1% INJ 10MG/ML (20 ML MDV) ONE (08:23)
[2017-06-10] MEDS ORDERED: fentaNYL (PF) 50 MCG/ML 2 ML AMP ONE (08:23)
[2017-06-10] MEDS ORDERED: ALBUTEROL INHALER 60 PUFF/8 GM INHALER INHALATION ONE (08:23)
[2017-06-10] MEDS ORDERED: KETOROLAC 30 MG/ML 1 ML VIAL ONE (08:23)
[2017-06-10] MEDS ORDERED: ROCURONIUM BROMIDE 10 MG/ML 10 ML VIAL IV ONE (08:23)
[2017-06-10] MEDS ORDERED: SUCCINYLCHOLINE CHLORIDE 100 MG/5 ML SYR IV ONE (08:23)
[2017-06-10] MEDS ORDERED: PROPOFOL 10 MG/ML 20 ML VIAL IV ONE (08:23)
[2017-06-10] MEDS ORDERED: GLYCOPYRROLATE 0.2 MG/ML 2 ML VIAL ONE (08:23)
[2017-06-10] MEDS ORDERED: BUPIVACAINE (PF) 0.25% 30 ML VIAL SQ ONE (08:48)
[2017-06-10 09:22] VITALS: TEMP 97
[2017-06-10] MEDS ORDERED: LACTATED RINGERS 1,000 ML IV ONE (10:00)
[2017-06-10] MEDS ORDERED: Acetaminophen-Codeine 300-30mg TAB PO ONE (10:28)
[2017-06-10 11:34] VITALS: RESP 18
[2017-06-10 11:35] VITALS: BP 171/67; PULSE 68
--- NOTE | 2017-06-14 12:39 | P.OP ---
Date of Procedure: 06/10/17 Preoperative Diagnosis: 1. hydrosalpinx Postoperative Diagnosis: 1. right hydrosalpinx Procedure(s) Performed: laparoscopic right salpingectomy Anesthesia: JENNIFER Surgeon: Shena Jett Estimated Blood Loss (ml): 1 IV fluids (ml): 200 Urine output (ml): 50 Pathology: other (right fallopian tube) Condition: stable Disposition: PACU Operative Findings: Normal appearing uterus, appearance of hydrosalpinx in the right fallopian tube , evidence of bilateral tubal ligation, fimbriated end of the left fallopian tube was wrapped around the left ovary. Description of Procedure: Patient is taken the operating room where general anesthesia was obtained without difficulty. She is prepped and draped in normal sterile fashion dorsal lithotomy position, legs placed in the Jasson stirrups. Bladder was drained of all urine. Weighted sputum place in vagina the anterior lip of cervix grasped with single-tooth tenaculum. [place] manipulator was placed into the uterus in hopes to the single-tooth tenaculum. Attention was then turned to the abdomen and gloves were changed. A 10 mm infraumbilical incision was made with scalpel and 10 mm optical trocar was placed under direct visualization. A 5 mm suprapubic incision was made and a 5 mm optical trocar was placed under direct visualization. The patient was placed in Trendelenburg and the bowels were swept away with the blunt probe. The right fallopian tube appeared to have fluid inside of the proximal end near the uterus enlarging this portion of the fallopian tube. A 5 mm incision was made on the right side of the patient's abdomen. The 5 mm trocar was placed under direct visualization. While a grasper was used to hold the portion of the fallopian tube steady, the 5 LigaSure was used to clamp, seal, and ligate across the mesosalpinx to free this portion of the fallopian tube. It was then used to clamp seal and ligate across the junction at the uterus. Hemostasis was assured. Portion of the fallopian tube was then placed into an Endo Catch bag and removed through the 10 port. Hemostasis was again assured. Survey of the pelvis revealed a normal uterus, the left fallopian tube appeared normal except for evidence of a previous tubal ligation where a portion of the fallopian tube was missing, and the fimbriated end of the fallopian tube and left side was wrapped around the left ovary. All instruments removed from the abdomen and the vagina. The 10 mm infraumbilical incision was closed first with 0 Vicryl and the fascial layer and then 4-0 Vicryl in a subcuticular fashion. Patient tolerated the procedure well, sponge initial counts correct 2 and she was taken to recovery room in stable condition.
== END 2017-06-10 12:03 | disposition home or self-care (01) ==
LOC: OR 06:46
PROVIDERS: ATTEND Obstetrics & Gynecology
DX: N70.11 Chronic salpingitis (principal); E11.9 Type 2 diabetes mellitus without complications; Z79.84 Long term (current) use of oral hypoglycemic drugs; I10 Essential (primary) hypertension; K21.9 Gastro-esophageal reflux disease without esophagitis; Z80.41 Family history of malignant neoplasm of ovary; Z80.0 Family history of malignant neoplasm of digestive organs; E28.2 Polycystic ovarian syndrome; Z88.2 Allergy status to sulfonamides
CPT/HCPCS: 81025; 88304; 58661; J2250; J1100; J2710; J2405; J2001; J3010; J1885; J0330; J2704

== ENCOUNTER → 2017-10-20 | Outpatient (CLI) | payer OTHER ==
--- NOTE | 2017-10-22 08:57 | MM ---
Reason for exam: screening (asymptomatic). Last mammogram was performed 1 year and 11 months ago. Physical Findings: A clinical breast exam by your physician is recommended on an annual basis and results should be correlated with mammographic findings. MG Screening Mammo w CAD Bilateral CC and MLO view(s) were taken. Prior study comparison: November 21, 2015, bilateral MG screening mammo w CAD. There are scattered fibroglandular densities. No suspicious abnormality. No significant changes when compared with prior studies. ASSESSMENT: Negative, BI-RAD 1 RECOMMENDATION: Routine screening mammogram of both breasts in 1 year.
== END | disposition home or self-care (01) ==
LOC: RADMAMWWP 16:42
PROVIDERS: ATTEND Family Medicine
DX: Z12.31 Encounter for screening mammogram for malignant neoplasm of breast (principal)
CPT/HCPCS: 77067

== ENCOUNTER → 2018-10-26 | Outpatient (CLI) | payer OTHER ==
--- NOTE | 2018-10-27 14:55 | MM ---
Reason for exam: screening (asymptomatic). Last mammogram was performed 1 year ago. Physical Findings: A clinical breast exam by your physician is recommended on an annual basis and results should be correlated with mammographic findings. MG Screening Mammo w CAD Bilateral CC and MLO view(s) were taken. Prior study comparison: October 20, 2017, bilateral MG screening mammo w CAD. November 21, 2015, bilateral MG screening mammo w CAD. The breast tissue is heterogeneously dense. This may lower the sensitivity of mammography. No significant changes when compared with prior studies. ASSESSMENT: Benign, BI-RAD 2 RECOMMENDATION: Routine screening mammogram of both breasts in 1 year.
== END | disposition home or self-care (01) ==
LOC: RADMAMWWP 15:02
PROVIDERS: ATTEND Family Medicine
DX: Z12.31 Encounter for screening mammogram for malignant neoplasm of breast (principal)
CPT/HCPCS: 77067

== ENCOUNTER → 2019-11-29 | Outpatient (CLI) | payer OTHER ==
--- NOTE | 2019-12-01 09:35 | MM ---
Reason for exam: screening (asymptomatic). Last mammogram was performed 1 year and 1 month ago. Physical Findings: A clinical breast exam by your physician is recommended on an annual basis and results should be correlated with mammographic findings. MG Screening Mammo w CAD Bilateral CC and MLO view(s) were taken. Prior study comparison: October 26, 2018, bilateral MG screening mammo w CAD. October 20, 2017, bilateral MG screening mammo w CAD. There are scattered fibroglandular densities. No significant changes when compared with prior studies. ASSESSMENT: Negative, BI-RAD 1 RECOMMENDATION: Routine screening mammogram of both breasts in 1 year.
== END | disposition home or self-care (01) ==
LOC: RADMAMWWP 16:07
PROVIDERS: ATTEND Family Medicine
DX: Z12.31 Encounter for screening mammogram for malignant neoplasm of breast (principal)
CPT/HCPCS: 77067

== ENCOUNTER → 2019-12-11 | Outpatient (CLI) | payer OTHER ==
[~2019-12-11] MED LIST changes: -LACTATED RINGERS 1,000 ML IV SCH; -MORPHINE SULFATE 4 MG/ML SYRINGE IV PRN; -Pre Op ABX Message 1 EACH MISC MISCELLANE ONE; +REGADENOSON 0.4 MG/5 ML SYRINGE IV ONE; -SCOPOLAMINE 1.5MG/72HR PATCH TRANSDERM ONE; -fentaNYL (PF) 50 MCG/ML 2 ML AMP IV PRN
--- NOTE | 2019-12-11 12:31 | P.STRESS ---
- Stress Test Note Stress Test Results/Findings: Exam Performed: NM stress lexiscan cardiolite Exam Date: 12/11/19 Reason for Exam: SHORT OF BREATH Height: 5 ft 3 in Weight: 92.986 kg Protocol: LEXISCAN CARDIOLITE Stage: N/A Duration of Exercise: N/A Resting Heart Rate: 62 Resting Blood Pressure: 111/70 Maximum Achieved Heart Rate: 115 Maximum Achieved Blood Pressure: 122/69 85% PMHR: 150 100% PMHR: 176 METS: N/A Technologist Comment: Stress Test Results/Findings: At baseline EKG patient has normal sinus rhythm with a heart rate of 60, nonspecific ST depressions in the inferior leads. At peak infusion patient had sinus tachycardia without any change of EKG from baseline. Conclusions 1. Nondiagnostic EKG response to Lexiscan. 2. Nuclear images to be reported separately.
--- NOTE | 2019-12-11 12:31 | ECHOF ---
Referral Reason:R07.9 Chest pain MEASUREMENTS -------- HEIGHT: 160.0 cm WEIGHT: 93.0 kg BP: RVIDd: 2.9 cm (< 3.3) IVSd: 1.2 cm (0.6 - 1.1) LVIDd: 3.8 cm (3.9 - 5.3) LVPWd: 1.1 cm (0.6 - 1.1) IVSs: 1.5 cm LVIDs: 2.6 cm LVPWs: 1.6 cm LA Diam: 3.6 cm (2.7 - 3.8) LAESV Index (A-L): 17.88 ml/m Ao Diam: 2.9 cm (2.0 - 3.7) AV Cusp: 2.1 cm (1.5 - 2.6) MV EXCURSION: 15.510 mm (> 18.000) MV EF SLOPE: 118 mm/s (70 - 150) EPSS: 0.4 cm MV E Kevin: 1.00 m/s MV DecT: 131 ms MV A Kevin: 0.65 m/s MV E/A Ratio: 1.54 RAP: 5.00 mmHg RVSP: 18.74 mmHg FINDINGS -------- Sinus rhythm. This was a technically good study. The left ventricular size is normal. There is borderline concentric left ventricular hypertrophy. Overall left ventricular systolic function is normal with, an EF between 60 - 65 %. The right ventricle is normal in size. Normal LA size by volume 22+/-6 ml/m2. The right atrium is normal in size. Interatrial and interventricular septum intact. The aortic valve is trileaflet and appears structurally normal. Trace amount of aortic regurgitatio n. The mitral valve is normal. Trace tricuspid regurgitation present. There is no pulmonic regurgitation present. The aortic root size is normal. Normal inferior vena cava with normal inspiratory collapse consistent with estimated right atrial pre ssure of 5 mmHg. There is no pericardial effusion. CONCLUSIONS -------- 1. The left ventricular size is normal. 2. There is borderline concentric left ventricular hypertrophy. 3. Overall left ventricular systolic function is normal with, an EF between 60 - 65 %. 4. The aortic valve is trileaflet and appears structurally normal. 5. Trace amount of aortic regurgitation. 6. Trace tricuspid regurgitation present. 7. There is no pericardial effusion. STORE COORDINATOR: Carrie Smith RDCS
--- NOTE | 2019-12-11 14:08 | NM ---
EXAMINATION TYPE: NM stress lexiscan cardiolite DATE OF EXAM: 12/11/2019 COMPARISON: NONE HISTORY: Chest pain TECHNIQUE: After the intravenous administration of 10.35 mCi Tc 99m Sestamibi - Cardiolite resting S PECT images acquired 90 minutes post injection. The patient received 0.4mg Lexiscan, 25.4 mCi Tc 99m Sestamibi - Stress images obtained [address] injection FINDINGS: Review of stress and rest SPECT images demonstrates no distinct perfusion abnormality. No fixed or re versible perfusion defects are evident. Gated analysis shows normal wall motion with an estimated lef t ventricular ejection fraction of 72 %. IMPRESSION: 1. No stress-induced ischemic changes. 2. Normal ejection fraction
== END | disposition home or self-care (01) ==
LOC: RADNMMAIN 08:49
PROVIDERS: ATTEND Family Medicine
DX: R07.9 Chest pain, unspecified (principal)
CPT/HCPCS: 93017; 93306; 78452; A9500; J2785

== ENCOUNTER → 2020-01-10 | Outpatient (CLI) | payer OTHER ==
--- NOTE | 2020-01-11 07:15 | US ---
EXAMINATION TYPE: US transvaginal DATE OF EXAM: 01/10/2020 COMPARISON: US 2018 CLINICAL HISTORY: R10.2 Pelvic and perineal pain. Dull pelvic and perineal pain upon doctor's exam. H x PCOS, ablation in 2014. Right fallopian tube removed in 2018. G 2 P 2. Patient's mother had ovarian cancer. TECHNIQUE: Transvaginal (TV). Date of LMP: 01/01/2020 EXAM MEASUREMENTS: Uterus: 8.3 x 4.1 x 4.0 cm Endometrial Stripe: Limited, measured at 0.52 cm. Right Ovary: Possible right ovary mentioned below measurin.4 x 3.2 x 3.3 cm Left Ovary: 2.9 x 1.7 x 1.7 cm 1. Uterus: Anteverted Appears heterogeneous. Multiple anechoic areas seen within cervix. Largest m easures: 1.2 x 0.9 x 0.7 cm. Two anechoic areas seen in uterus. First area measured upper uterus toward the right: 0.7 x 0.5 x 0.4 cm. Second are measured mid: 0.9 x 0.4 x 0.3 cm. 2. Endometrium: Limited, measured at 0.52. 3. Right Ovary: Area in right adnexa mentioned below, possible right ovary. 4. Left Ovary: Hypoechoic area seen measurin.0 x 0.9 x 0.8 cm. Heterogeneous, indistinct, shadow ing area seen measurin.4 x 1.2 x 1.0 cm. 5. Bilateral Adnexa: Area of mixed echogenicity in right adnexa, Possible right ovary measures 3.4 x 3.2 x 3.3 cm. Anechoic area seen within this area measurin.1 x 2.8 x 2.9 cm. Venous and arterial waveform seen. 6. Posterior cul-de-sac: Appears wnl IMPRESSION: 1. Leiomyomatous change of the uterus. 2. Ovarian cystic changes are nonspecific and could reflect functional ovarian cysts with possible he morrhagic left ovarian cyst. Follow-up study in 6 weeks is advised.
== END | disposition home or self-care (01) ==
LOC: RADUSWWP 16:52
PROVIDERS: ATTEND Family Medicine
DX: N83.209 Unspecified ovarian cyst, unspecified side (principal)
CPT/HCPCS: 76830; 93976

== ENCOUNTER → 2020-02-29 | Outpatient (CLI) | payer OTHER ==
--- NOTE | 2020-02-29 23:03 | US ---
EXAMINATION TYPE: US transvaginal DATE OF EXAM: 02/29/2020 COMPARISON: US 01/10/2020 CLINICAL HISTORY: N83.209 Hemorrhagic cyst of ovaries. Follow up to previous ultrasound, right ovaria n cyst in December 2019. History of ablation and right fallopian tube removed TECHNIQUE: . Transabdominal sonographic images of the pelvis were acquired. Transvaginal sonographi c images were medically necessary to better assess the following anatomy: Uterus Date of LMP: Years ago per patient EXAM MEASUREMENTS: Uterus: 7.3 x 3.9 x 3.8 cm Endometrial Stripe: 0.3 cm Right Ovary: 2.5 x 1.4 x 1.0 cm Left Ovary: 2.4 x 2.0 x 1.2 cm 1. Uterus: Anteverted Heterogeneous. Multiple nabothian cysts visualized. Myometrial cyst visualiz ed measuring 0.3 cm 2. Endometrium: wnl 3. Right Ovary: wnl 4. Left Ovary: adjacent to the left ovary, there is a simple cystic area visualized measuring 1.9 x 0.7 x 0.9 cm, possible pedunculated cyst vs other 5. Bilateral Adnexa: wnl 6. Posterior cul-de-sac: wnl IMPRESSION: 1. Left ovarian cyst.
== END | disposition home or self-care (01) ==
LOC: RADUSWWP 16:03
PROVIDERS: ATTEND Family Medicine
DX: N83.202 Unspecified ovarian cyst, left side (principal)
CPT/HCPCS: 76830

== ENCOUNTER → 2020-03-26 | Outpatient (CLI) | payer OTHER ==
--- NOTE | 2020-03-26 08:54 | CT ---
EXAMINATION TYPE: CT pelvis wo con DATE OF EXAM: 03/26/2020 COMPARISON: Pelvic ultrasound February 29, 2020 and older ultrasounds. HISTORY: Hemorrhagic cyst of ovary, unspecified site of ovarian cyst CT DLP: 486.50 mGycm Automated exposure control for dose reduction was used. FINDINGS: Anteverted normal-sized uterus. Few scattered bilateral pelvic phleboliths. Small Nabothian cysts in the cervix on ultrasound less well-seen on CT. No free fluid in pelvis. Both ovaries normal in size, right slightly larger than left axial image 34. No suspicious adnexal or ovarian masses on noncontrast CT. Small 3 to 4 mm punctate calcification along posterior superior ma rgin of left ovary noted axial image 31. No suspicious small or large bowel dilatation. Occasional sigmoid colonic diverticula. Bladder poorly distended. Mild disc space narrowing L5-S1 level. Alignment satisfactory. Bilateral groin regions unremarkable. IMPRESSION: No suspicious ovarian or adnexal masses on CT. Area of concern left ovary on most recent ultrasounds was subcentimeter in size and showed interval change consistent with resolving simple fol licular cyst.
== END | disposition home or self-care (01) ==
LOC: RADCTMAIN 07:42
PROVIDERS: ATTEND Family Medicine
DX: N83.8 Other noninflammatory disorders of ovary, fallopian tube and broad ligament (principal)
CPT/HCPCS: 72192

== ENCOUNTER 2021-03-05 06:09 | Day surgery (SDC) | payer OTHER ==
[2021-03-03 15:06] VITALS: BMI 32.8
[~2021-03-05 06:09] MED LIST changes: +LIDOCAINE 1% (10MG/ML) FOR IV START INTRADERMA PRN; -REGADENOSON 0.4 MG/5 ML SYRINGE IV ONE
[2021-03-05] MEDS ORDERED: LIDOCAINE 1% (10MG/ML) FOR IV START INTRADERMA ONE (06:59)
[2021-03-05] MEDS: LACTATED RINGERS 1,000 ML IV SCH ×2 (06:59→07:08)
[2021-03-05 07:00] VITALS: RESP 16; TEMP 97.6
[2021-03-05 07:04] LABS: Glucose,Whole Blood 79 mg/dL (75-99)
[2021-03-05] MEDS ORDERED: PROPOFOL 10 MG/ML 20 ML VIAL IV ONE (07:10)
--- NOTE | 2021-03-05 07:26 | P.PCN ---
Date of Procedure: 03/05/21 Procedure(s) Performed: BRIEF HISTORY: Patient is a 45-year-old pleasant white female scheduled for an elective colonoscopy as a part of screening for colon cancer. She does have family history of colon cancer diagnosed in her father at age 60. PROCEDURE PERFORMED: Colonoscopy with biopsy. PREOPERATIVE DIAGNOSIS: Screening for colon cancer and family history of colon cancer. IV sedation per Anesthesia. PROCEDURE: After informed consent was obtained, the patient, was brought into the endoscopy unit. IV sedation was administered by Anesthesia under continuous monitoring. Digital rectal examination was normal. Initially the Olympus CF-160 flexible video colonoscope was then inserted in the rectum, gradually advanced into the cecum without any difficulty. Careful examination was performed as the scope was gradually being withdrawn. Ileocecal valve and the appendiceal orifice were visualized and appeared normal. Prep was excellent. Mucosa of the cecum, ascending colon, transverse colon, appeared normal. In the descending colon there was a 3-4 mm sessile polyp that was removed by cold biopsy. Rest of the descending colon, sigmoid colon, and rectum appeared normal. Retroflexion was performed in the rectum and no lesions were seen. Scattered sigmoid diverticulosis seen. The patient tolerated the procedure well. IMPRESSION: 3-4 mm sessile descending colon polyp status post biopsy and scattered sigmoid diverticulosis RECOMMENDATIONS: Findings of this examination were discussed with the patientas well as her family. She was advised to follow with the biopsy results and have a repeat colonoscopy in 5 years because of the family history of colon cancer].
[2021-03-05 07:44] VITALS: BP 118/85; PULSE 72
== END 2021-03-05 08:19 | disposition home or self-care (01) ==
LOC: ORWHC2ENDO 06:09
PROVIDERS: ATTEND Internal Medicine Gastroenterology
DX: Z12.11 Encounter for screening for malignant neoplasm of colon (principal); D12.4 Benign neoplasm of descending colon; K57.30 Diverticulosis of large intestine without perforation or abscess without bleeding; Z80.0 Family history of malignant neoplasm of digestive organs; I10 Essential (primary) hypertension; E11.9 Type 2 diabetes mellitus without complications; R42 Dizziness and giddiness; K21.9 Gastro-esophageal reflux disease without esophagitis; Z79.84 Long term (current) use of oral hypoglycemic drugs; Z79.899 Other long term (current) drug therapy; Z88.2 Allergy status to sulfonamides
CPT/HCPCS: 81025; 88305; 45380; J2704

== ENCOUNTER → 2021-04-21 | Outpatient (CLI) | payer BC ==
--- NOTE | 2021-04-24 15:17 | MM ---
Reason for exam: screening (asymptomatic). Last mammogram was performed 1 year and 5 months ago. Physical Findings: A clinical breast exam by your physician is recommended on an annual basis and results should be correlated with mammographic findings. MG Screening Mammo w CAD Bilateral CC and MLO view(s) were taken. Prior study comparison: November 29, 2019, bilateral MG screening mammo w CAD. October 26, 2018, bilateral MG screening mammo w CAD. The breast tissue is heterogeneously dense. This may lower the sensitivity of mammography. Finding: There is a 8 mm obscured oval mass in the slight inner quadrant, anterior middle position of the right breast. There is a chronic nodularity in the left axilla. New finding since November 29, 2019 and October 26, 2018. ASSESSMENT: Incomplete: need additional imaging evaluation, BI-RAD 0 RECOMMENDATION: Special view mammogram of the right breast. If lesion persists on supplemental views, image directed ultrasound is recommended. [facility] will attempt to contact patient to return for supplemental views and ultrasound if indicated.
== END | disposition home or self-care (01) ==
LOC: RADMAMWWP 16:28
PROVIDERS: ATTEND Family Medicine
DX: Z12.31 Encounter for screening mammogram for malignant neoplasm of breast (principal)
CPT/HCPCS: 77067

== ENCOUNTER → 2021-04-30 | Outpatient (CLI) | payer BC ==
--- NOTE | 2021-05-01 08:57 | MM ---
Reason for exam: additional evaluation requested from abnormal screening. Last mammogram was performed less than 1 month ago. Physical Findings: Nurse Summary: 1cm nodule in the right breast at 2 o'clock (nurse sid). MG Work Up Mamm w CAD RT Spot compression CC, spot compression MLO, and LM view(s) were taken of the right breast. Prior study comparison: April 21, 2021, bilateral MG screening mammo w CAD. November 29, 2019, bilateral MG screening mammo w CAD. There are scattered fibroglandular densities. There is no discrete abnormality including area of concern marked on skin. No significant new findings when compared with previous films. These results were verbally communicated with the patient and result sheet given to the patient on 04/30/21. ASSESSMENT: Incomplete: need additional imaging evaluation, BI-RAD 0 RECOMMENDATION: Ultrasound of the right breast. (palpable)
--- NOTE | 2021-05-01 08:58 | USB ---
Reason for exam: additional evaluation requested from abnormal screening. US Breast Workup Limited RT Right limited breast ultrasound including focal area of concern, retroareolar and axilla demonstrates no cystic or solid lesion seen. These results were verbally communicated with the patient and result sheet given to the patient on 04/30/21. ASSESSMENT: Negative, BI-RAD 1 RECOMMENDATION: Follow-up diagnostic mammogram of the right breast in 6 months.
== END | disposition home or self-care (01) ==
LOC: RADMAMWWP 14:51
PROVIDERS: ATTEND Family Medicine
DX: R92.8 Other abnormal and inconclusive findings on diagnostic imaging of breast (principal)
CPT/HCPCS: 77065

== ENCOUNTER 2021-06-09 16:15 | Emergency (ER) | payer BC ==
[2021-06-09 16:26] VITALS: BP 124/83; PULSE 95; RESP 18; TEMP 98.8
--- NOTE | 2021-06-09 17:47 | CT ---
EXAMINATION TYPE: CT brain brittaney hui con DATE OF EXAM: 06/09/2021 COMPARISON: None HISTORY: fell hitting head CT DLP: 1473 mGycm Automated exposure control for dose reduction was used. Images obtained of the brain and cervical spine without contrast. Ventricles have normal size. There is no mass effect or midline shift. There is no sign of intracrani al hemorrhage. There is left occipital scalp hematoma measuring 8 mm in thickness. The calvarium is intact. No fracture seen. Skull base is intact. There is normal aeration of the mastoid sinuses. The cervical vertebra have normal alignment. Facet joints are intact. There is mild hypertrophic dege nerative disc changes at C5-6 and C6-7. No compression fracture. Prevertebral soft tissues are intact . There is posterior osteophyte formation and some mild relative spinal stenosis at C5-6. IMPRESSION: Negative CT scan of the brain. Left occipital scalp hematoma. Spondylotic changes in the lower cervical spine. No fracture.
--- NOTE | 2021-06-09 17:49 | XR ---
EXAMINATION TYPE: XR knee complete RT DATE OF EXAM: 06/09/2021 COMPARISON: NONE HISTORY: Fall down the stairs. Pain TECHNIQUE: 3 views FINDINGS: I see no fracture nor dislocation. There is no sign of joint effusion. There is some calcif ication medial to the medial femoral condyle that could relate to old injury. Patella is intact. Ther e is minor spurring of the medial femoral and tibial condyles. IMPRESSION: Minor degenerative changes. No acute bony abnormality.
[2021-06-09] MEDS ORDERED: MECLIZINE 12.5 MG TAB PO STA (18:20)
--- NOTE | 2021-06-09 18:24 | ED ---
Head Injury HPI - General Chief complaint: Head Injury Stated complaint: Fall/Head Injury Source: patient Mode of arrival: ambulatory Limitations: no limitations - History of Present Illness Initial comments: 45-year-old female presents the emergency department with reported head injury. States that 2 days ago she fell backwards down her basement steps. They are worried. She fell and hit her head and lost consciousness for approximately 30 seconds. She is not on any blood thinners. She did sustain a hematoma to the occiput. Patient has been having vertigo since the injury. It is positional in nature. Does report a history of vertigo. Has not taken any medications for her symptoms. Also twisted her right knee which she just had meniscus surgery in March. She has been wearing her knee immobilizer. She's been taking Motrin and Tylenol for headache. Denies any visual changes. No numbness, tingling or weakness in her extremity. She saw her primary care doctor today who recommended that she come into the emergency department for a head CT. No other alleviating, precipitating or modifying factors - Related Data Home Medications Medication Instructions Recorded Confirmed Spironolactone [Aldactone] 25 mg PO DAILY 03/25/16 06/09/21 metFORMIN HCL [Glucophage] 1,000 mg PO DAILY 03/25/16 06/09/21 Omeprazole 40 mg PO DAILY 06/08/17 06/09/21 Empagliflozin [Jardiance] 25 mg PO DAILY 03/03/21 06/09/21 Losartan Potassium [Cozaar] 100 mg PO DAILY 03/03/21 06/09/21 Semaglutide [Ozempic] 1 mg SQ TH 03/03/21 06/09/21 Previous Rx's Medication Instructions Recorded Meclizine [Antivert] 25 mg PO TID PRN #15 tab 06/09/21 Allergies/Adverse reactions: Allergies Allergy/AdvReac Type Severity Reaction Status Date / Time Sulfa (Sulfonamide Allergy Intermediate Rash/Hives Verified 06/09/21 18:03 Antibiotics) Review of Systems ROS Statement: Those systems with pertinent positive or pertinent negative responses have been documented in the HPI. ROS Other: All systems not noted in ROS Statement are negative. Past Medical History Past Medical History: Diabetes Mellitus, GERD/Reflux, Hypertension Additional Past Medical History / Comment(s): PCOS-not diabetic, states meds are for this, change in bowel habits,. benign paroxysmal positional vertigo History of Any Multi-Drug Resistant Organisms: None Reported Past Surgical History: Tubal Ligation, Uterine Ablation Additional Past Surgical History / Comment(s): NASAL surgery, cataract removed right eye, right torn meniscus Past Anesthesia/Blood Transfusion Reactions: No Reported Reaction Past Psychological History: No Psychological Hx Reported Smoking Status: Never smoker Past Alcohol Use History: None Reported Past Drug Use History: None Reported - Past Family History Mother Family Medical History: Cancer, Congestive Heart Failure (CHF), Diabetes Mellitus, Hypertension Additional Family Medical History / Comment(s): OVARIAN CA Father Family Medical History: Cancer Additional Family Medical History / Comment(s): COLON CA Brother(s) Family Medical History: Neurologic Disorder Additional Family Medical History / Comment(s): ONE OF 5 BROTHERS HAS PARKINSON'S General Exam Limitations: no limitations Course Vital Signs 06/09/21 16:24 Temperature 98.8 F Pulse Rate 95 Respiratory 18 Rate Blood Pressure 124/83 O2 Sat by Pulse 98 Oximetry Medical Decision Making - Medical Decision Making Upon arrival patient was placed into room 4. A thorough history and physical exam was performed. Patient sent for CT of her head and cervical spine. X-rays of the right knee are performed. No acute intracranial process. No cervical fractures. Normal x-ray of the right knee. Patient is given a dose of meclizine for her vertigo. I discussed diagnosis, treatment options. Patient will be discharged home at this time and instructed follow up with her primary care doctor in 2-4 days. Return for any new or worsening symptoms. She may need to see a neurologist if her symptoms persist. Patient was discharged home in stable condition Disposition Clinical Impression: Concussion, Scalp hematoma, Right knee pain, Fall down stairs Disposition: HOME SELF-CARE Condition: Stable Instructions (If sedation given, give patient instructions): Concussion (ED) Additional Instructions: Please follow-up with Dr. Suarez within 2-4 days for reevaluation. You may need to see a neurologist if your symptoms persist. I also recommended you follow up with your orthopedic surgeon for your right knee pain. Return for any worsening symptoms Prescriptions: Meclizine [Antivert] 25 mg PO TID PRN #15 tab PRN Reason: Vertigo Is patient prescribed a controlled substance at d/c from ED?: No Referrals: Musa Suarez MD [Primary Care Provider] - 1-2 days Time of Disposition: 18:24
== END 2021-06-09 18:35 | disposition home or self-care (01) ==
LOC: EC 16:15
DX: S06.0X1A Concussion with loss of consciousness of 30 minutes or less, initial encounter (principal); S00.03XA Contusion of scalp, initial encounter; M25.561 Pain in right knee; E11.9 Type 2 diabetes mellitus without complications; K21.9 Gastro-esophageal reflux disease without esophagitis; I10 Essential (primary) hypertension; Z79.84 Long term (current) use of oral hypoglycemic drugs; Z88.2 Allergy status to sulfonamides; Z98.51 Tubal ligation status; W10.8XXA Fall (on) (from) other stairs and steps, initial encounter
CPT/HCPCS: 70450; 72125; 99284

== ENCOUNTER → 2021-11-10 | Outpatient (CLI) | payer BC ==
--- NOTE | 2021-11-10 15:18 | MM ---
Reason for Exam: Follow-up at short interval from prior study. Last screening mammogram was performed 7 month(s) ago. Patient History: Menarche at age 10. First Full-Term at age 19. Mother had ovarian cancer, age 55. Risk Values: Felicita 5 year model risk: 0.7%. NCI Lifetime model risk: 7.6%. Prior Study Comparison: 11/29/2019 Bilateral Screening Mammogram, [facility]. 04/21/2021 Bilateral Screening Mammogram, [facility]. 04/30/2021 Right Diagnostic Mammogram, [facility]. Tissue Density: Right: There are scattered fibroglandular densities. Findings: Analyzed By CAD. The previous subtle medial nodularity has resolved. No significant change from prior exams. The patient reports that the previous palpable area has also resolved. Overall Assessment: Negative, BI-RAD 1 Management: Screening Mammogram of both breasts in 6 months. 1. Patient should continue monthly self breast exams. 2. A clinical breast exam by your physician is recommended on an annual basis. 3. This exam should not preclude additional follow-up of suspicious palpable abnormalities. Results were given to the patient verbally at the time of exam. Electronically signed and approved by: Edison Aguilar M.D. Radiologist
== END | disposition home or self-care (01) ==
LOC: RADMAMWWP 14:51
PROVIDERS: ATTEND Family Medicine
DX: R92.8 Other abnormal and inconclusive findings on diagnostic imaging of breast (principal)
CPT/HCPCS: 77061; 77065

== ENCOUNTER → 2022-04-28 | Outpatient (CLI) | payer BC ==
--- NOTE | 2022-04-29 22:09 | MM ---
Reason for Exam: Screening (asymptomatic). Last screening mammogram was performed 12 month(s) ago. Patient History: Menarche at age 10. First Full-Term at age 19. Patient has history of breast feeding. Mother had ovarian cancer, age 55. Last menstrual period: 04/14/2022 Risk Values: Felicita 5 year model risk: 0.7%. NCI Lifetime model risk: 7.6%. Prior Study Comparison: 04/21/2021 Bilateral Screening Mammogram, [facility]. 04/30/2021 Right Diagnostic Mammogram, [facility]. 11/10/2021 Right MG 3D diag mammo w/cad RT, [facility]. Tissue Density: There are scattered fibroglandular densities. Findings: Analyzed By CAD. There is no suspicious group of microcalcifications or new suspicious mass in either breast. Overall Assessment: Negative, BI-RAD 1 Management: Screening Mammogram of both breasts in 1 year. 1. Patient should continue monthly self breast exams. 2. A clinical breast exam by your physician is recommended on an annual basis. 3. This exam should not preclude additional follow-up of suspicious palpable abnormalities. Electronically signed and approved by: Edison Aguilar M.D. Radiologist
== END | disposition home or self-care (01) ==
LOC: RADMAMWWP 16:53
PROVIDERS: ATTEND Family Medicine
DX: Z12.31 Encounter for screening mammogram for malignant neoplasm of breast (principal)
CPT/HCPCS: 77067

== ENCOUNTER → 2023-05-06 | Outpatient (CLI) | payer BC ==
--- NOTE | 2023-05-07 19:37 | MM ---
Reason for Exam: Screening (asymptomatic). Last screening mammogram was performed 12 month(s) ago. Patient History: Menarche at age 10. First Full-Term at age 19. Patient has history of breast feeding. Mother had ovarian cancer, age 55. Last menstrual period: 05/02/2023 Risk Values: Felicita 5 year model risk: 0.7%. NCI Lifetime model risk: 7.5%. Prior Study Comparison: 04/30/2021 Right Diagnostic Mammogram, [facility]. 11/10/2021 Right MG 3D diag mammo w/cad RT, [facility]. 04/28/2022 Bilateral MG screening mammo w CAD, [facility]. Tissue Density: There are scattered fibroglandular densities. Findings: Analyzed By CAD. There is no suspicious group of microcalcifications or new suspicious mass in either breast. Overall Assessment: Negative, BI-RAD 1 Management: Screening Mammogram of both breasts in 1 year. . Patient should continue monthly self-breast exams. A clinical breast exam by your physician is recommended on an annual basis. This exam should not preclude additional follow-up of suspicious palpable abnormalities. Note on Felicita scores and lifetime risk: 1. A Felicita score greater than 3% is considered moderate risk. If this is the case, consider specialist referral to assess eligibility for a risk reducing agent. 2. If overall lifetime risk for the development of breast cancer is 20% or higher, the patient may qualify for future screening with alternating mammogram and breast MRI. Electronically signed and approved by: Edison Aguilar M.D. Radiologist
== END | disposition home or self-care (01) ==
LOC: RADMAMWWP 15:57
PROVIDERS: ATTEND Family Medicine
DX: Z12.31 Encounter for screening mammogram for malignant neoplasm of breast (principal)
CPT/HCPCS: 77063; 77067

== ENCOUNTER → 2024-06-23 | Outpatient (CLI) | payer OTHER ==
--- NOTE | 2024-06-26 07:16 | MM ---
Reason for Exam: Screening (asymptomatic). Last mammogram was performed 1 year(s) and 2 month(s) ago. Patient History: Menarche at age 10. First Full-Term at age 19. Perimenopausal. Patient has history of breast feeding. Mother had ovarian cancer, age 55. Risk Values: Felicita 5 year model risk: 0.7%. NCI Lifetime model risk: 7.4%. Prior Study Comparison: 11/10/2021 Right MG 3D diag mammo w/cad RT, [facility]. 04/28/2022 Bilateral MG screening mammo w CAD, [facility]. 05/06/2023 Bilateral MG 3D screening mammo w/cad, [facility]. Tissue Density: There are scattered areas of fibroglandular density. Findings: Analyzed By CAD. Benign appearing right axillary lymph nodes nodes are redemonstrated. There is no suspicious group of microcalcifications or new suspicious mass in either breast. Overall Assessment: Negative, BI-RAD 1 Management: Screening Mammogram of both breasts in 1 year. . Patient should continue monthly self-breast exams. A clinical breast exam by your physician is recommended on an annual basis. This exam should not preclude additional follow-up of suspicious palpable abnormalities. Note on Felicita scores and lifetime risk: 1. A Felicita score greater than 3% is considered moderate risk. If this is the case, consider specialist referral to assess eligibility for a risk reducing agent. 2. If overall lifetime risk for the development of breast cancer is 20% or higher, the patient may qualify for future screening with alternating mammogram and breast MRI. [facility], , 06/26/2024 7:13 AM. Electronically signed and approved by: Gonzalez Colon M.D.
== END | disposition home or self-care (01) ==
LOC: RADMAMWWP 15:51
PROVIDERS: ATTEND Family Medicine
DX: Z12.31 Encounter for screening mammogram for malignant neoplasm of breast (principal); R92.323 Mammographic fibroglandular density, bilateral breasts
CPT/HCPCS: 77063; 77067

== ENCOUNTER → 2024-10-03 | Outpatient (CLI) | payer OTHER ==
--- NOTE | 2024-10-03 15:31 | US ---
EXAMINATION TYPE: US transvaginal DATE OF EXAM: 10/03/2024 COMPARISON: NONE CLINICAL INDICATION: Female, 49 years old with history of R10.2 PELVIC PAIN; Pain NovaSure ablation d one right tube removed TECHNIQUE: Transvaginal (TV). FINDINGS: EXAM MEASUREMENTS: Uterus: 7.3 x 3.9 x 3.6 cm Endometrial Stripe: obscured Left Ovary: 1.3 x 1.2 x 1.7 cm 1. Uterus: Anteverted nabothian cysts seen, heterogenous anechoic area .6 x .4 x .6 cm hypoechoic ar ea 1.6 x .7 x 1.3 cm. This may be a fibroid. 2. Endometrium: Obscured 3. Right Ovary: Obscured by overlying bowel gas 4. Left Ovary: wnl 5. Bilateral Adnexa: wnl 6. Posterior cul-de-sac: wnl IMPRESSION: 1. There may be a fibroid in the posterior fundal uterus. O-RADS 2021 [email or web address] [facility], , 10/03/2024 3:28 PM
== END | disposition home or self-care (01) ==
LOC: RADUSWWP 14:49
PROVIDERS: ATTEND Family Medicine
DX: N88.8 Other specified noninflammatory disorders of cervix uteri (principal)
CPT/HCPCS: 76830

== ENCOUNTER → 2024-10-18 | Outpatient (CLI) | payer OTHER ==
--- NOTE | 2024-10-18 11:29 | CT ---
EXAMINATION TYPE: CT abdomen pelvis wo con DATE OF EXAM: 10/18/2024 10:46 AM COMPARISON: Ultrasound CLINICAL INDICATION: Female, 49 years old with history of N85.8 disorder of uterus; MASS ON UTERUS TECHNIQUE: Axial CT abdomen pelvis wo con;Sagittal and coronal reformats were created on a separate workstation. Contrast used: mL of , (none if empty) Oral contrast used: without Oral Contrast (none if empty) CT DLP: 555.70 mGycm, Automated exposure control for dose reduction was used. FINDINGS: LOWER CHEST: Unremarkable LIVER: Unremarkable GALLBLADDER AND BILE DUCTS: Unremarkable. PANCREAS: Unremarkable. SPLEEN: Unremarkable. ADRENAL GLANDS: Unremarkable. KIDNEYS AND URETERS: No evidence of hydronephrosis or obstructing renal calculus. The ureters are unr emarkable. BLADDER: No evidence for wall thickening or mass given limitations of exam. REPRODUCTIVE: No masses visualized. The uterus measures by 8.7 x 4.8 x 5.1 cm. No adnexal masses. No cysts. STOMACH AND BOWEL: No evidence of bowel obstruction. PERITONEUM/RETROPERITONEUM: No evidence of pneumoperitoneum or free fluid. VASCULATURE: No evidence of aortic aneurysm. MUSCULOSKELETAL: No acute osseous abnormalities. Mild disc degeneration changes are present throughou t the thoracolumbar spine. Grade 1 anterolisthesis of L4 and L5. LYMPH NODES: No gross evidence for lymphadenopathy. SOFT TISSUE/ABDOMINAL WALL: Unremarkable IMPRESSION: Limited exam without contrast. No uterine masses definitively visualized. Consider MRI for evaluation of fibroids. [facility], , 10/18/2024 11:26 AM
== END | disposition home or self-care (01) ==
LOC: RADCTMAIN 10:30
PROVIDERS: ATTEND Family Medicine
DX: N85.8 Other specified noninflammatory disorders of uterus (principal)
CPT/HCPCS: 74176